=== PATIENT | male | born 1970 | race Caucasian/White ===

== ENCOUNTER 2019-07-20 16:30 | Emergency (ER) | payer OTHER ==
--- NOTE | 2019-07-20 17:40 | EDPHYS ---
Physician Documentation [facility] Name: Delfin Slade Age: 48 yrs Sex: Male : 1970 Arrival Date: 07/20/2019 Time: 16:33 Bed 6 Private MD: ED Physician Constantin Carr HPI: 07/19 18:21 This 48 yrs old Male presents to ER via Ambulatory with complaints of Back kdr Pain. 18:21 The patient presents with pain and decreased range of motion. The symptoms are located kdr in the thoracic area. Onset: The symptoms/episode began/occurred gradually. The pain does not radiate. Associated signs and symptoms: The patient has no apparent associated signs or symptoms. The problem was sustained The patient has chronic back pain form an injury in the - has run out of his typical medicine. Modifying factors: The patient symptoms are alleviated by nothing, the patient symptoms are aggravated by any movement. Severity of symptoms: At their worst the symptoms were moderate, in the emergency department the symptoms. The patient has experienced similar episodes in the past, chronically. Historical: - Allergies: 16:44 No Known Allergies; jl7 - Home Meds: 16:44 Belbuca 450 mcg buccal film [Active]; Bupropion Oral [Active]; Hydrochlorothiazide Oral jl7 [Active]; - PMHx: 16:44 Hypertension; Back pain; jl7 - Immunization history:: Adult Immunizations not up to date. - Social history:: Smoking status: Patient denies any tobacco usage or history of. ROS: 18:21 Constitutional: Negative for fever, chills, and weight loss. kdr 18:21 Back: Positive for pain at rest, pain with movement, of the thoracic area. Exam: 18:21 Constitutional: This is a well developed, well nourished patient who is awake, alert, kdr and in no acute distress. Head/Face: Normocephalic, atraumatic. 18:21 Back: pain, that is mild, that is moderate, of the thoracic area, ROM is painful, normal spinal alignment noted. Vital Signs: 16:41 BP 136 / 86; Pulse 78; Resp 17; Pulse Ox 98% ; Weight 89.36 kg; Height 5 ft. 10 in. jl7 (177.80 cm); Pain 10/10; 17:52 BP 121 / 75; Pulse 68; Resp 16; Temp 98; Pulse Ox 97% ; bp 16:41 Body Mass Index 28.27 (89.36 kg, 177.80 cm) jl7 MDM: 17:39 Patient medically screened. kdr 17:43 Data reviewed: vital signs, nurses notes. ED course: [employer] score 140. kdr Administered Medications: No medications were administered Disposition: 07/20/19 17:39 Discharged to Home. Impression: Chronic Upper back pain. - Condition is Stable. - Discharge Instructions: Degenerative Disk Disease, Back Pain, Adult, [id number]. - Prescriptions for BELBUCA - place 450 microgram by BUCCAL route every [address] one 450 mcg Buccal Film between cheek and gum until dissolved every 12 hours for pain. Dispense 60 films; 60 unit. - Medication Reconciliation Form, Thank You Letter, Prescription Opioid Use form. - Follow up: Private Physician; When: 2 - 3 days; Reason: If symptoms return, Further diagnostic work-up, Recheck today's complaints, Continuance of care, Re-evaluation by your physician. Follow up: Garry Serrano DO; When: 2 - 3 days; Reason: If symptoms return, Further diagnostic work-up, Recheck today's complaints, Continuance of care, Re-evaluation by your physician. - Problem is an acute exacerbation. - Symptoms have improved. Signatures: Constantin Crar MD MD kdr Regine El RN RN jl7 Rojas Thornton RN RN bp Corrections: (The following items were deleted from the chart) 17:54 17:39 07/20/2019 17:39 Discharged to Home. Impression: Chronic Upper back pain. bp Condition is Stable. Discharge Instructions: Degenerative Disk Disease, Back Pain, Adult, [id number]. Prescriptions for BELBUCA - place 450 microgram by BUCCAL route every [address] one 450 mcg Buccal Film between cheek and gum until dissolved every 12 hours for pain. Dispense 60 films; 60 unit. and Forms are Medication Reconciliation Form, Thank You Letter, Antibiotic Education, Prescription Opioid Use. Follow up: Private Physician; When: 2 - 3 days; Reason: If symptoms return, Further diagnostic work-up, Recheck today's complaints, Continuance of care, Re-evaluation by your physician. Follow up: Garry Serrano; When: 2 - 3 days; Reason: If symptoms return, Further diagnostic work-up, Recheck today's complaints, Continuance of care, Re-evaluation by your physician. Problem is an acute exacerbation. Symptoms have improved. kdr
--- NOTE | 2019-07-20 17:40 | ER ---
Nurse's Notes [facility] Name: Delfin Slade Age: 48 yrs Sex: Male : 1970 Arrival Date: 07/20/2019 Time: 16:33 Bed 6 Private MD: Diagnosis: Chronic Upper back pain Presentation: 07/19 16:41 Chief complaint: Patient states: Chronic low back pain worsening today. Coronavirus jl7 screen: Proceed with normal triage. Patient denies a cough. Patient denies shortness of breath or difficulty breathing. Patient denies measured and/or subjective temperature greater than 100.4F prior to today's visit. Patient denies travel on a cruise ship or to a country the [facility] currently lists as an affected area. Patient denies contact with known and/or suspected case of COVID-19. Ebola Screen: No symptoms or risks identified at this time. Initial Sepsis Screen: Does the patient meet any 2 criteria? No. Patient's initial sepsis screen is negative. Does the patient have a suspected source of infection? No. Patient's initial sepsis screen is negative. Risk Assessment: Do you want to hurt yourself or someone else? Patient reports no desire to harm self or others. Onset of symptoms was July 20, 2019. Care prior to arrival: None. 16:41 Method Of Arrival: Ambulatory jl7 16:41 Acuity: SEBLE 4 jl7 Triage Assessment: 16:44 General: Appears in no apparent distress. uncomfortable, Behavior is cooperative, jl7 anxious. Pain: Complains of pain in back Pain currently is 10 out of 10 on a pain scale. Musculoskeletal: pt appears to be in pain while walking. Historical: - Allergies: 16:44 No Known Allergies; jl7 - Home Meds: 16:44 Belbuca 450 mcg buccal film [Active]; Bupropion Oral [Active]; Hydrochlorothiazide Oral jl7 [Active]; - PMHx: 16:44 Hypertension; Back pain; jl7 - Immunization history:: Adult Immunizations not up to date. - Social history:: Smoking status: Patient denies any tobacco usage or history of. Screenin:45 Abuse screen: Denies threats or abuse. Denies injuries from another. Nutritional bp screening: No deficits noted. Tuberculosis screening: No symptoms or risk factors identified. Fall Risk None identified. Assessment: 16:45 General: Appears in no apparent distress. comfortable, Behavior is cooperative, bp appropriate for age, anxious. Pain: Complains of pain in back. Neuro: No deficits noted. Neuro: Level of Consciousness is awake, alert, obeys commands, Oriented to person, place, time, situation, Appropriate for age Gait is steady. Cardiovascular: No deficits noted. Respiratory: No deficits noted. GI: No signs and/or symptoms were reported involving the gastrointestinal system. : No signs and/or symptoms were reported regarding the genitourinary system. EENT: No deficits noted. Derm: No deficits noted. Musculoskeletal: No deficits noted. 17:53 Reassessment: PT D/C HOME AMBULATORY, DX WITH CHRONIC BACK PAIN. bp Vital Signs: 16:41 BP 136 / 86; Pulse 78; Resp 17; Pulse Ox 98% ; Weight 89.36 kg; Height 5 ft. 10 in. jl7 (177.80 cm); Pain 10/10; 17:52 BP 121 / 75; Pulse 68; Resp 16; Temp 98; Pulse Ox 97% ; bp 16:41 Body Mass Index 28.27 (89.36 kg, 177.80 cm) jl7 ED Course: 16:33 Patient arrived in ED. ag5 16:37 Rojas Thornton, RN is Primary Nurse. bp 16:42 Triage completed. jl7 16:44 Arm band placed on right wrist. jl7 16:45 Patient has correct armband on for positive identification. Bed in low position. Call bp light in reach. Side rails up X2. 16:51 Constantin Carr MD is Attending Physician. kdr 17:39 Garry Serrano DO is Referral Physician. kdr 17:53 No provider procedures requiring assistance completed. Patient did not have IV access bp during this emergency room visit. Administered Medications: No medications were administered Outcome: 17:39 Discharge ordered by . kdr 17:53 Discharged to home ambulatory. bp 17:53 Condition: stable 17:53 Discharge instructions given to patient, Instructed on discharge instructions, follow up and referral plans. medication usage, Demonstrated understanding of instructions, follow-up care, medications, Prescriptions given X 1. 17:54 Patient left the ED. bp Signatures: Constantin Carr MD MD kdr Leal, Jahala, RN RN 7 Rojas Thornton, RN RN bp Ricki Calderon ag5
[2019-07-20 18:07] VITALS: BP 121/75; TEMP 98; O2SAT 97
== END 2019-07-20 17:54 | disposition home or self-care (01) ==
LOC: ER 16:30
DX: G89.29 Other chronic pain (principal); M54.6 Pain in thoracic spine
CPT/HCPCS: 99282